=== PATIENT | female | born 1985 | race Two or more races ===

== ENCOUNTER 2017-09-26 16:16 | Emergency (ER) | payer MEDICAID ==
[~2017-09-26] VITALS: Ht 162.6 cm; Wt 115.2 kg
[2017-09-26 17:36] VITALS: BP 128/74
== END 2017-09-26 18:26 | disposition home or self-care (01) ==
LOC: ER 16:16
DX: J03.90 Acute tonsillitis, unspecified (principal); F17.210 Nicotine dependence, cigarettes, uncomplicated

== ENCOUNTER → 2020-02-28 | Emergency (ER) | payer MEDICAID ==
[2020-02-28 16:40] VITALS: BP 0/0
== END | disposition expired ==
LOC: ER 16:18
DX: I46.9 Cardiac arrest, cause unspecified (principal); J96.01 Acute respiratory failure with hypoxia; F32.9 Major depressive disorder, single episode, unspecified; F17.210 Nicotine dependence, cigarettes, uncomplicated
CPT/HCPCS: 31500; 92950